=== PATIENT | male | born 1995 | race African-American/Black ===

== ENCOUNTER 2016-10-23 20:01 | Emergency (ER) | payer SELFPAY ==
[~2016-10-23] VITALS: Ht 185.4 cm; Wt 87.5 kg
[2016-10-23] MEDS ORDERED: Bacitracin Oint UD TOPIC ONE (20:30)
[2016-10-23] MEDS ORDERED: Lidocaine 1% MPF 10mg/ml 5ml IM ONE (20:30)
[2016-10-23 20:39] VITALS: BP 115/64
[2016-10-23] MEDS ORDERED: CEPHALEXIN500 MG ORAL (21:06)
[2016-10-23 21:18] VITALS: BP 115/64
--- NOTE | 2016-10-23 21:52 | Emergency Room Report ---
History of Present Illness General Chief Complaint: Laceration Source: Patient Present Illness HPI The patient is a 20-year-old male presenting for a right hand laceration. The patient states that he was in the restroom and fell to the ground where broken glass lay. The patient states that his head struck the glass and he noticed bleeding. The patient denies any pain to the hand and denies any numbness or tingling. The patient states that his last tetanus shot was 2 years prior. Allergies: Coded Allergies: No Known Allergies (Unverified , 10/23/16) Patient History Past Medical History: see triage record Pertinent Family History: none Reviewed Nursing Documentation: PMH: Agreed, PSxH: Agreed Nursing Documentation-PMH Past Medical History: No Stated History Review of Systems All Other Systems: negative except mentioned in HPI Physical Exam Vital Signs Date Time Temp Pulse Resp B/P Pulse Ox O2 Delivery O2 Flow Rate FiO2 10/23/16 20:15 98.4 69 18 115/64 99 Room Air Sp02 EP Interpretation: reviewed, normal General Appearance: no apparent distress, alert, GCS 15, non-toxic Head: normocephalic, atraumatic Eyes: bilateral eye PERRL, bilateral eye normal inspection ENT: hearing grossly normal, normal pharynx, no angioedema, normal voice Neck: full range of motion, supple/symm/no masses Respiratory: chest non-tender, lungs clear, normal breath sounds, speaking full sentences Cardiovascular #1: regular rate, rhythm, no edema Cardiovascular #2: 2+ carotid (R), 2+ carotid (L), 2+ radial (R), 2+ radial (L) , 2+ dorsalis pedis (R), 2+ dorsalis pedis (L) Gastrointestinal: normal bowel sounds, non tender, soft, non-distended, no guarding, no rebound Rectal: deferred Genitourinary: normal inspection, no CVA tenderness Musculoskeletal: back normal, gait/station normal, normal range of motion, non- tender Neurologic: alert, oriented x3, responsive, motor strength/tone normal, sensory intact, speech normal Psychiatric: judgement/insight normal, memory normal, mood/affect normal, no suicidal/homicidal ideation Reflexes: 3+ bicep (R), 3+ bicep (L), 3+ tricep (R), 3+ tricep (L), 3+ knee (R) , 3+ knee (L) Skin: normal color, no rash, warm/dry, well hydrated, laceration - R hand dorsum: 2cm laceration of 4th finger distal to MCP and 1cm laceration of 2nd MCP Lymphatic: no adenopathy Procedures Laceration/Wound Repair Laceration/Wound Repair : Consent: Verbal Wound Location: upper extremity Wound's Depth, Shape: superficial Wound Length (cm): 3 - total length of 2 lacerations Wound Explored: clean Irrigated w/ Saline (ccs): 200 Betadine Prep?: Yes Anesthesia: 1% Lidocaine Volume Anesthetic (ccs): 4 Wound Debrided: minimal Wound Repaired With: sutures Suture Size/Type: 5:0, nylon Number of Sutures: 5 Layer Closure?: No Sterile Dressing Applied?: Yes Splint Applied?: No Sling Applied?: No Patient Tolerated: Well Complications: None Medical Decision Making PA Attestation Dr. Vallejo is my supervising physician. Patient management was discussed with my supervising physician Diagnostic Impression: Primary Impression: Laceration ER Course The patient is a 20-year-old male presenting for a right hand laceration. Ddx considered include but not limited to fracture, tendon/ligament injury, avulsion, nerve damage PE: Vitals WNL. NAD. R hand dorsum: 2cm laceration of 4th finger distal to MCP and 1cm laceration of 2nd MCP. No active bleeding. Full active range of motion. Sensation intact to light touch. No obvious deformity The wound was irrigated with normal saline and cleaned with betadine. A 27g needle was used to administer 4mL of lidocaine w.o epi for local anaesthesia. 5 total sutures were placed with 5-0 Nylon. The wound was well approximated and the patient tolerated the procedure well. The wound was then cleaned and bacitracin was applied. The patient will be discharged home with a prescription for Keflex and will followup with primary care physician or return to emergency Department for suture removal. ER precautions are given Last Vital Signs Date Time Temp Pulse Resp B/P Pulse Ox O2 Delivery O2 Flow Rate FiO2 10/23/16 21:18 98.4 69 18 115/64 99 Room Air Status: improved Disposition: HOME, SELF-CARE Condition: Improved Scripts Cephalexin* (KEFLEX*) 500 Mg Capsule 500 MG ORAL EVERY 12 HOURS, #14 CAP 0 Refills Prov: TERZIROSEANN TAMAYO 10/23/16 Referrals: NOT CHOSEN [facility]/,REFERRING (PCP) Patient Instructions: Laceration Care, Adult Additional Instructions: I discussed my findings with the patient. All questions and concerns have been answered. Treatment and medication compliance have been addressed. I advised the patient that they need to follow up with PMD in 6-7 days for wound check and suture removal. If you are unable to see PMD, return to the ED in 6-7 days. Return to ED if pain remains or worsens, you notice discharge from the wound, the wound continues to bleed, the suture/s fall out, you notice a fever or chills, or for any reason. Patient is advised to keep the wound clean and apply an antibacterial ointment. Patient verbalized understanding of discharge instructions. ROSEANN KU Oct 23, 2016 21:52
== END 2016-10-23 21:19 | disposition home or self-care (01) ==
LOC: EMR 20:36
DX: S61.210A Laceration without foreign body of right index finger without damage to nail, initial encounter (principal); S61.214A Laceration without foreign body of right ring finger without damage to nail, initial encounter; S61.218A Laceration without foreign body of other finger without damage to nail, initial encounter; X58.XXXA Exposure to other specified factors, initial encounter; Y93.9 Activity, unspecified; Y92.9 Unspecified place or not applicable; Y99.9 Unspecified external cause status

== ENCOUNTER 2016-11-25 11:34 | Emergency (ER) | payer SELFPAY ==
[~2016-11-25] VITALS: Ht 182.9 cm; Wt 87.5 kg
[~2016-11-25 11:34] MED LIST: CEPHALEXIN500 MG ORAL
[2016-11-25 11:41] VITALS: BP 135/70
[2016-11-25] MEDS ORDERED: CLOTRIMAZOLE15 GM TOPIC (11:59)
[2016-11-25] MEDS ORDERED: IBUPROFEN600 MG ORAL (11:59)
[2016-11-25 12:26] VITALS: BP 123/70
--- NOTE | 2016-11-26 06:55 | Emergency Room Report ---
History of Present Illness General Chief Complaint: General Complaint Source: Patient Present Illness HPI 20-year-old male presents to ED for evaluation. Patient states that he has blisters on the bottom of his feet. Patient is homeless and presents with multiple suitcases. Patient states he's had a blisters for many days now. Believes there is a "infection". Patient states he would like a wheelchair to go home. Patient states the pain is throbbing, 7/10 localized to bottom of the feet bilaterally. Nonradiating. Worse with walking. No other agreed relieving factors. Notes pain but is able to bear weight. Denies any other associated symptoms Allergies: Coded Allergies: No Known Allergies (Unverified , 10/23/16) Patient History Past Medical History: none Past Surgical History: none Pertinent Family History: none Social History: Denies: alcohol use, drug use, smoking Immunizations: UTD Reviewed Nursing Documentation: PMH: Agreed, PSxH: Agreed Nursing Documentation-PMH Past Medical History: No Stated History Review of Systems All Other Systems: negative except mentioned in HPI Physical Exam Vital Signs Date Time Temp Pulse Resp B/P Pulse Ox O2 Delivery O2 Flow Rate FiO2 11/25/16 11:41 98.1 78 16 135/70 100 Room Air Sp02 EP Interpretation: reviewed, normal General Appearance: no apparent distress, alert, GCS 15, non-toxic Head: normocephalic Eyes: bilateral eye PERRL, bilateral eye normal inspection ENT: normal ENT inspection Neck: normal inspection Respiratory: normal inspection Cardiovascular #1: normal inspection Gastrointestinal: normal inspection Rectal: deferred Genitourinary: no CVA tenderness Musculoskeletal: back normal, gait/station normal, normal range of motion, non- tender Neurologic: alert, oriented x3, responsive, motor strength/tone normal, sensory intact, speech normal Psychiatric: normal inspection Skin: other - blisters to bottom of both feet. emacerated skin between toes bilaterally Lymphatic: normal inspection Medical Decision Making Diagnostic Impression: Primary Impression: Blister of foot Qualified Codes: S90.829A - Blister (nonthermal), unspecified foot, initial encounter ER Course Hospital Course 20-year-old male presents to ED with blisters to bilateral feet Differential diagnoses include: Cellulitis, dermatitis, insect bite, abscess Clinical course Patient placed on stretcher. After initial history, physical exam reveals a young male in no acute distress. On exam there is evidence of blisters to bottom of both feet. No evidence of cellulitis. There is some macerated skin between the toes bilaterally. Given patient's current hygienic state likely has fungal infection. Will give patient new socks, prescription for antifungal cream. Patient will not receive a wheelchair as we are not able to accommodate such request and the patient is ambulatory. Diagnosis - blister of foot stable and discharged to home with prescription for Lotrimin, motrin Instructed to followup with PMD. Instructed return to ED if symptoms recur or worsen Last Vital Signs Date Time Temp Pulse Resp B/P Pulse Ox O2 Delivery O2 Flow Rate FiO2 11/25/16 12:26 93 14 123/70 100 Room Air 11/25/16 11:41 98.1 Status: improved Disposition: HOME, SELF-CARE Condition: Stable Scripts Clotrimazole* (LOTRIMIN*) 15 Gm Cream..g. 1 APPLIC TOPIC TWICE A DAY, #15 GM Prov: MAXIMILIAN CHRISTIANSON M.D. 11/25/16 Ibuprofen* (MOTRIN*) 600 Mg Tablet 600 MG ORAL Q8H Y for For Pain, #30 TAB 0 Refills Prov: MAXIMILIAN CHRISTIANSON M.D. 11/25/16 Referrals: NOT CHOSEN [facility]/,REFERRING (PCP) Patient Instructions: MAXIMILIAN Jones M.D. Nov 26, 2016 06:55
== END 2016-11-26 00:26 | disposition home or self-care (01) ==
LOC: EMR 11:50
DX: S90.822A Blister (nonthermal), left foot, initial encounter (principal); S90.821A Blister (nonthermal), right foot, initial encounter; Z59.0 Homelessness
CPT/HCPCS: 99284

== ENCOUNTER 2017-01-02 03:03 | Emergency (ER) | payer SELFPAY ==
[~2017-01-02] VITALS: Ht 185.4 cm; Wt 81.6 kg
[~2017-01-02 03:03] MED LIST changes: +CLOTRIMAZOLE15 GM TOPIC; +IBUPROFEN600 MG ORAL
[2017-01-02 03:16] VITALS: BP 130/77
[2017-01-02] MEDS ORDERED: NKM (03:18)
[2017-01-02] MEDS ORDERED: TYLENOL EXTRA500 MG ORAL (03:38)
[2017-01-02 04:16] VITALS: BP 133/79
[2017-01-02 04:30] VITALS: BP 133/79
--- NOTE | 2017-01-03 00:47 | Emergency Room Report ---
History of Present Illness General Chief Complaint: General Complaint Source: Patient Present Illness HPI 21-year-old male presents to ED for evaluation. Patient states he is here for a "sponge bath" and because his throat hurts. patient states he has a fever- afebrile in triage. Denies cough. Denies earache. Patient is homeless. Denies chest pain shortness of breath. No other aggravating relieving factors. Denies any other associated Allergies: Coded Allergies: No Known Allergies (Unverified , 01/02/17) Patient History Past Medical History: none Past Surgical History: none Pertinent Family History: none Social History: Denies: alcohol use, drug use, smoking Immunizations: UTD Reviewed Nursing Documentation: PMH: Agreed, PSxH: Agreed Nursing Documentation-PMH Past Medical History: No Stated History Review of Systems All Other Systems: negative except mentioned in HPI Physical Exam Vital Signs Date Time Temp Pulse Resp B/P Pulse Ox O2 Delivery O2 Flow Rate FiO2 01/02/17 03:15 98.1 79 16 130/77 99 Room Air Sp02 EP Interpretation: reviewed, normal General Appearance: no apparent distress, alert, GCS 15, non-toxic Head: normocephalic, atraumatic Eyes: bilateral eye PERRL, bilateral eye normal inspection ENT: hearing grossly normal, normal pharynx, no angioedema, normal voice Neck: full range of motion, supple/symm/no masses Respiratory: chest non-tender, lungs clear, normal breath sounds, speaking full sentences Cardiovascular #1: regular rate, rhythm, no edema Cardiovascular #2: 2+ carotid (R), 2+ carotid (L), 2+ radial (R), 2+ radial (L) , 2+ dorsalis pedis (R), 2+ dorsalis pedis (L) Gastrointestinal: normal bowel sounds, non tender, soft, non-distended, no guarding, no rebound Rectal: deferred Genitourinary: normal inspection, no CVA tenderness Musculoskeletal: back normal, gait/station normal, normal range of motion, non- tender Neurologic: alert, oriented x3, responsive, motor strength/tone normal, sensory intact, speech normal Psychiatric: judgement/insight normal, memory normal, mood/affect normal, no suicidal/homicidal ideation Reflexes: 3+ bicep (R), 3+ bicep (L), 3+ tricep (R), 3+ tricep (L), 3+ knee (R) , 3+ knee (L) Skin: normal color, no rash, warm/dry, well hydrated Lymphatic: no adenopathy Medical Decision Making Diagnostic Impression: Primary Impression: Sore throat (viral) ER Course Hospital Course 21-year-old male presents ED complaining of throat pain. Afebrile Differential diagnoses include: URI, pharyngitis, otitis media Clinical course Patient placed on stretcher. After initial history, physical exam reveals a young male in no acute distress. Bilateral TM unremarkable. no pharyngeal erythema. no exudates. No lymphadenopathy. given tylenol Diagnosis - sore throat (viral) Stable and discharged home with prescriptions for Tylenol. Instructed to followup with PMD. return to ED if symptoms recur or worsen Last Vital Signs Date Time Temp Pulse Resp B/P Pulse Ox O2 Delivery O2 Flow Rate FiO2 01/02/17 04:30 98.0 77 15 133/79 99 Room Air Status: improved Disposition: HOME, SELF-CARE Condition: Stable Scripts Acetaminophen* (TYLENOL EXTRA STRENGTH*) 500 Mg Tablet 500 MG ORAL Q8H Y for Prn Headache/Temp > 101, #30 TAB 0 Refills Prov: MAXIMILIAN CHRISTIANSON M.D. 01/02/17 Referrals: NOT CHOSEN [facility]/,REFERRING (PCP) Patient Instructions: Sore Throat, [id number] MAXIMILIAN CHRISTIANSON M.D. Jan 03, 2017 00:47
[2017-01-03] MEDS ORDERED: PERMETHRIN60 GM TOPIC (20:20)
[2017-01-03] MEDS ORDERED: ATARAX25 MG ORAL (20:20)
== END 2017-01-02 04:35 | disposition home or self-care (01) ==
LOC: EMR 03:29
DX: J02.8 Acute pharyngitis due to other specified organisms (principal); Z59.0 Homelessness
CPT/HCPCS: 99283

== ENCOUNTER 2017-01-03 18:43 | Emergency (ER) | payer SELFPAY ==
[~2017-01-03] VITALS: Ht 182.9 cm; Wt 81.6 kg
[~2017-01-03 18:43] MED LIST changes: +NKM; +TYLENOL EXTRA500 MG ORAL
--- NOTE | 2017-01-03 20:19 | Emergency Room Report ---
History of Present Illness General Chief Complaint: Skin Rash/Abscess Source: Patient Present Illness HPI 21-year-old male presents emergency department complaining of itchy rash in the pubic hair area x2 days. Patient denies erythema patient denies testicular pain patient denies lesions patient denies penile discharge, hematuria or dysuria. Patient denies nausea vomiting fever chills. Patient denies swollen tender lymph nodes. Patient denies abdominal pain. Patient reports seeing tiny white insects.Denies CP, Palpitations, LOC, AMS, dizziness, Changes in Vision, Sensation, paresthesias, or a sudden severe headache. Allergies: Coded Allergies: No Known Allergies (Unverified , 01/02/17) Patient History Past Medical History: see triage record Past Surgical History: none Pertinent Family History: none Immunizations: UTD Reviewed Nursing Documentation: PMH: Agreed, PSxH: Agreed Nursing Documentation-PMH Past Medical History: No History, Except For History Of Psychiatric Problem: Yes - BIPOLAR Review of Systems All Other Systems: negative except mentioned in HPI Physical Exam Vital Signs Date Time Temp Pulse Resp B/P Pulse Ox O2 Delivery O2 Flow Rate FiO2 01/03/17 18:50 98.1 63 20 127/82 100 Room Air Sp02 EP Interpretation: reviewed, normal General Appearance: no apparent distress, alert, GCS 15, non-toxic Head: normocephalic, atraumatic Eyes: bilateral eye PERRL, bilateral eye normal inspection ENT: hearing grossly normal, normal pharynx, no angioedema, normal voice Neck: full range of motion, supple/symm/no masses Respiratory: chest non-tender, lungs clear, normal breath sounds, speaking full sentences Cardiovascular #1: regular rate, rhythm, no edema Cardiovascular #2: 0 carotid (R), 0 carotid (L), 0 radial (R), 0 radial (L), 0 femoral (R), 0 femoral (L), 0 dorsalis pedis (R), 0 dorsalis pedis (L) Gastrointestinal: normal bowel sounds, non tender, soft, no guarding, no rebound Rectal: deferred Genitourinary: normal inspection, no CVA tenderness Musculoskeletal: back normal, gait/station normal, normal range of motion, non- tender, no calf tenderness Neurologic: alert, oriented x3, responsive, motor strength/tone normal, sensory intact, speech normal Psychiatric: judgement/insight normal, memory normal, mood/affect normal, no suicidal/homicidal ideation Skin: normal color, warm/dry, well hydrated, rash - evidence to suggest pediculosis infestation white nits adherant to the pubic hair, no erythema of the skin, no LAD, no tenderness. Lymphatic: no adenopathy Medical Decision Making PA Attestation Dr. Vallejo is my supervising Physician whom patient management has been discussed with. Diagnostic Impression: Primary Impression: Pubic lice ER Course Pt. presents to the ED c/o rash on pubic hair area x 2 days. Ddx considered but are not limited to cellulitis, scabies, shingles, varicella, dermatitis, urticaria, eczema, tinea Vital signs: are WNL, pt. is afebrile H&PE are most consistent with pubic lice ORDERS: none required at this time, the diagnosis is clinical ED INTERVENTIONS: None required at this time. DISCHARGE: At this time pt. is stable for d/c to home. Will provide printed patient care instructions, and any necessary prescriptions. Care plan and follow up instructions have been discussed with the patient prior to discharge. Last Vital Signs Date Time Temp Pulse Resp B/P Pulse Ox O2 Delivery O2 Flow Rate FiO2 01/03/17 18:50 98.1 63 20 127/82 100 Room Air Disposition: HOME, SELF-CARE Condition: Stable Scripts Hydroxyzine HCl (Hydroxyzine HCl) 25 Mg Tablet 25 MG ORAL FOUR TIMES A DAY for 7 Days, #30 TAB Prov: Madeleine Alonzo 01/03/17 Permethrin* (ELIMITE*) 60 Gm Cream..g. 1 APPLIC TOPIC ONCE, #60 GM 0 Refills Apply cream from head to toe; leave on for 8-14 hours before washing off with water; may reapply in 1 week if live mites appear. Prov: Madeleine Alonzo 01/03/17 Referrals: NOT CHOSEN [facility]/MD,REFERRING (PCP) Patient Instructions: Lice, Adult, Rash Additional Instructions: Take medications as directed. Follow up with PCP in 3-5 days Return sooner to ED if new symptoms occur, or current symptoms become worse. Do not drink alcohol, drive, or operate heavy machinery while taking hydroxyzine as this may cause drowsiness. - Please note that this Emergency Department Report was dictated using [employer] welding machine operator technology software, occasionally this can lead to erroneous entry secondary to interpretation by the dictation equipment. Madeleine Alonzo Jan 03, 2017 20:18
[2017-01-03 20:20] VITALS: BP 132/84
[2017-01-03] MEDS ORDERED: PERMETHRIN60 GM TOPIC (20:20)
[2017-01-03] MEDS ORDERED: ATARAX25 MG ORAL (20:20)
[2017-01-03 21:04] VITALS: BP 132/84
== END 2017-01-03 21:05 | disposition home or self-care (01) ==
LOC: EMR 20:00
DX: B85.3 Phthiriasis (principal); F31.9 Bipolar disorder, unspecified
CPT/HCPCS: 99284

== ENCOUNTER 2020-07-23 10:10 | Emergency (ER) | payer SELFPAY ==
[~2020-07-23] VITALS: Ht 188 cm; Wt 102.1 kg
[~2020-07-23 10:10] MED LIST changes: +ATARAX25 MG ORAL; +PERMETHRIN60 GM TOPIC
--- NOTE | 2020-07-23 10:51 | Emergency Room Report ---
History of Present Illness General Chief Complaint: Lower Extremity Injury Source: Patient Present Illness HPI Patient is a 24-year-old male presents for increased right lower extremity discomfort. Reports having recent injury to the top of his right foot. Denies any fever. Denies any pain to the bottom of his foot. Has been able to ambulate.Patient was noted to have some injury after something was dropped on his foot. Denies any increased swelling. Denies any prior history of diabetes or other medical conditions. 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 COVID-19 Screening: Negative COVID-19 COVID-19 Testing Source: unk Patient History Past Medical History: see triage record Reviewed Nursing Documentation: PMH: Agreed; PSxH: Agreed Nursing Documentation-PMH Past Medical History: No Stated History Review of Systems All Other Systems: negative except mentioned in HPI Physical Exam Vital Signs Date Time Temp Pulse Resp B/P (MAP) Pulse Ox O2 Delivery O2 Flow Rate FiO2 07/23/20 10:12 96.6 83 18 137/91 (106) 98 Room Air General Appearance: well appearing, no apparent distress, alert, GCS 15 Head: normocephalic, atraumatic ENT: hearing grossly normal, normal voice Neck: full range of motion, supple Respiratory: no respiratory distress, speaking full sentences Musculoskeletal: normal inspection, other - right foot superficial skin ulceration to dorsum of foot, no erythema Neurologic: oriented x3, normal gait Psychiatric: normal inspection, mood/affect normal Skin: no rash, other - superficial avulsion to skin of foot without erythema Medical Decision Making Diagnostic Impression: Primary Impression: Skin ulcer ER Course Presented for foot injury. Differential diagnosis include was not limited to ulcer, abrasion, cellulitis among others. Patient has a benign exam and does not appear to require any imaging or laboratory testing at this time. Patient does not appear to have any evidence of infection at this time. There appears to be superficial ulceration approximately 1 cm in diameter. Does not have any active bleeding at this time. Topical antibiotics were applied as well as local wound care. Patient be discharged home. The patient is advised to follow up with primary care doctor in 1-2 days. Patient is advised to return if any worsening condition or if any changes in status that are concerning. This report is dictated with [employer] electronic equipment trades worker software which may occasionally lead to discrepancies related to use of this software. Last Vital Signs Date Time Temp Pulse Resp B/P (MAP) Pulse Ox O2 Delivery O2 Flow Rate FiO2 07/23/20 10:12 96.6 83 18 137/91 (106) 98 Room Air Status: improved Disposition: HOME, SELF-CARE Condition: Stable Referrals: NOT CHOSEN [facility]/,REFERRING (PCP) Gregor Vallejo MD Jul 23, 2020 10:51
[2020-07-23] MEDS ORDERED: Bacitracin Oint UD TOPIC ONE (11:00)
[2020-07-23] MEDS ORDERED: Acetaminophen 500mg (ES) tab ORAL ONE (11:00)
[2020-07-23] MEDS ORDERED: BACITRACIN ZIN1 EACH TOPIC (11:09)
[2020-07-23 11:25] VITALS: BP 132/88
== END 2020-07-23 11:25 | disposition home or self-care (01) ==
LOC: EMR 10:38
DX: L98.499 Non-pressure chronic ulcer of skin of other sites with unspecified severity (principal); S91.301A Unspecified open wound, right foot, initial encounter; X58.XXXA Exposure to other specified factors, initial encounter; Y92.9 Unspecified place or not applicable
CPT/HCPCS: 99282

== ENCOUNTER 2020-10-03 18:18 | Emergency (ER) | payer MEDICAID ==
[~2020-10-03] VITALS: Ht 188 cm; Wt 99.8 kg
[~2020-10-03 18:18] MED LIST changes: +BACITRACIN ZIN1 EACH TOPIC
[2020-10-03] MEDS ORDERED: Tetanus/Diptheria/Pertussis IM ONE (19:00)
--- NOTE | 2020-10-03 19:38 | Emergency Room Report ---
History of Present Illness General Chief Complaint: Lower Extremity Injury Source: Patient Present Illness HPI 24-year-old male presents to the emergency department complaining of 6 out of 10 severity pain to the feet bilaterally that have been progressive for some time "weeks ". Patient reports that he is homeless and he walks for hours each day. 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 Patient reports he started developing blisters on the bottom of his feet. He is reporting some swelling to the feet bilaterally. He denies swelling of the ankles, calf swelling or calf tenderness. Patient does report tenderness to the plantar aspects of his feet. He is not sure when his last tetanus vaccination was. Patient reports only significant past medical history of psychiatric issues. Patient states he is living out on the streets and that is difficult for him to find places to sleep. He denies fevers, chills, bleeding, chest pain, shortness of breath, cough or headaches. No other symptoms at this time. 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: No COVID-19 Testing Source: 1 week Patient History Past Medical History: see triage record Past Surgical History: none Pertinent Family History: none Reviewed Nursing Documentation: PMH: Agreed; PSxH: Agreed Nursing Documentation-PMH Past Medical History: No History, Except For History Of Psychiatric Problem: Yes Review of Systems All Other Systems: negative except mentioned in HPI Physical Exam Vital Signs Date Time Temp Pulse Resp B/P (MAP) Pulse Ox O2 Delivery O2 Flow Rate FiO2 10/03/20 18:20 98.8 90 20 150/76 (100) 98 Room Air Sp02 EP Interpretation: reviewed, normal General Appearance: no apparent distress, alert, GCS 15, non-toxic, other - well kept for the most part/well dressed other than debilitated shoes. Head: normocephalic, atraumatic Eyes: bilateral eye normal inspection, bilateral eye PERRL ENT: hearing grossly normal, normal voice Neck: full range of motion Respiratory: speaking full sentences Cardiovascular #1: regular rate, rhythm, normal capillary refill, edema - 1+ nonpitting pedal edema Cardiovascular #2: 2+ dorsalis pedis (R), 2+ dorsalis pedis (L) Musculoskeletal: normal range of motion, no calf tenderness, gait/station normal, tender - plantar aspect of the feet bilaterally. Neurologic: alert, motor strength/tone normal, oriented x3, sensory intact, responsive, speech normal, normal gait, grossly normal Psychiatric: judgement/insight normal, mood/affect normal, no suicidal/homicidal ideation Skin: other - pressure sores and blisters due to friction and excessive moisture to the feet bilaterally. Mild erythema. Normal cap refill. Diffuse swelling of the feet bilaterally. No obvious puncture wounds or ulcers. 2+ pedal pulses bilaterally Medical Decision Making PA Attestation Dr. Vallejo is my supervising Physician whom patient management has been discussed with. Homeless Attestation I, The treating provider, Maedleine ALEGRIA, has assessed and agrees that patient is medically stable for discharge to an outpatient disposition. Diagnostic Impression: Primary Impression: Blister of foot Qualified Codes: S90.829A - Blister (nonthermal), unspecified foot, initial encounter Additional Impression: Pressure sore Qualified Codes: L89.91 - Pressure ulcer of unspecified site, stage 1 ER Course 24-year-old male presents to the emergency department complaining of 6 out of 10 severity pain to the feet bilaterally that have been progressive for some time "weeks ". Patient reports that he is homeless and he walks for hours each day. 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 Patient reports he started developing blisters on the bottom of his feet. He is reporting some swelling to the feet bilaterally. He denies swelling of the ankles, calf swelling or calf tenderness. Patient does report tenderness to the plantar aspects of his feet. He is not sure when his last tetanus vaccination was. Patient reports only significant past medical history of psychiatric issues. Patient states he is living out on the streets and that is difficult for him to find places to sleep. He denies fevers, chills, bleeding, chest pain, shortness of breath, cough or headaches. No other symptoms at this time. Ddx considered but are not limited to cellulitis, Necrotizing fasciitis, allergic reaction, burn, dermatitis, gout, trench foot, dermatophyte infection, blisters, pressure sores ingrown toe nail, Vital signs: are WNL, pt. is afebrile H&PE are most consistent with pressure sores and blisters due to friction and excessive moisture to the feet bilaterally. Mild erythema. Normal cap refill. Diffuse swelling of the feet bilaterally. No obvious puncture wounds or ulcers. 2+ pedal pulses bilaterally ORDERS: none required at this time, the diagnosis is clinical ED INTERVENTIONS: -Tdap IM DISCHARGE: At this time pt. is stable for d/c to home. Will provide printed p atient care instructions, and any necessary prescriptions. Care plan and follow up instructions have been discussed with the patient prior to discharge. Last Vital Signs Date Time Temp Pulse Resp B/P (MAP) Pulse Ox O2 Delivery O2 Flow Rate FiO2 10/03/20 18:20 98.8 90 20 150/76 (100) 98 Room Air Disposition: HOME, SELF-CARE Condition: Stable Scripts Cephalexin* (KEFLEX*) 500 Mg Capsule 500 MG ORAL EVERY 12 HOURS for 7 Days, #14 CAP 0 Refills Prov: Madeleine Alonzo 10/03/20 Ibuprofen* (MOTRIN*) 400 Mg Tablet 400 MG ORAL THREE TIMES A DAY, #20 TAB 0 Refills Prov: Madeleine Alonzo 10/03/20 Clotrimazole* (LOTRIMIN*) 15 Gm Cream..g. 1 APPLIC TOPIC TWICE A DAY, #15 GM Prov: Madeleine Alonzo 10/03/20 Referrals: [facility],REFERRING (PCP) Jose G Dsouza [facility]. [facility] Patient Instructions: Blisters Additional Instructions: Take medications as directed. ____Review packet that has several pages of homeless services community plans including shelters and free clinic information. Limit excessive walking and keep your feet elevated and dry. this will reduce swelling and progression of your symptoms. Follow up with a Primary Care Provider in 3-5 days, even if your symptoms have resolved. --Please review list of primary care clinics, if you do not already have a primary care provider Return sooner to ED if new symptoms occur, or current symptoms become worse. - Please note that this Emergency Department Report was dictated using SmartVaultmodel and mold maker plaster technology software, occasionally this can lead to erroneous entry secondary to interpretation by the dictation equipment. Madeleine Alonzo Oct 03, 2020 19:38
[2020-10-03] MEDS ORDERED: IBUPROFEN400 MG ORAL (19:49)
[2020-10-03] MEDS ORDERED: CEPHALEXIN500 MG ORAL (19:49)
[2020-10-03] MEDS ORDERED: CLOTRIMAZOLE15 GM TOPIC (19:49)
[2020-10-03 20:00] VITALS: BP 143/71
== END 2020-10-03 20:00 | disposition home or self-care (01) ==
LOC: EMR 19:16
DX: S90.822A Blister (nonthermal), left foot, initial encounter (principal); S90.821A Blister (nonthermal), right foot, initial encounter; X58.XXXA Exposure to other specified factors, initial encounter; L89.892 Pressure ulcer of other site, stage 2; Z23 Encounter for immunization
CPT/HCPCS: 90471; 90715; Z7502; 99283

== ENCOUNTER 2020-10-08 20:30 | Emergency (ER) | payer MEDICAID ==
[~2020-10-08] VITALS: Ht 188 cm; Wt 90.7 kg
[~2020-10-08 20:30] MED LIST changes: +IBUPROFEN400 MG ORAL
[2020-10-08] MEDS ORDERED: IBUPROFEN600 M1 ORAL (21:06)
--- NOTE | 2020-10-08 21:16 | Emergency Room Report ---
History of Present Illness General Chief Complaint: Lower Extremity Injury Source: Patient Present Illness HPI Disclaimer: Please note that this report is being documented using [employer] technology. This can lead to erroneous entry secondary to incorrect interpretation by the dictating instrument. HPI: 24-year-old male no reported past medical history presents for bilateral foot pain. He states he has had bilateral foot pain for a few months. He states he does a lot of walking. He has been seen here multiple times for for the same. No fevers nausea or vomiting. He reports about 8 out of 10 pain that is worse with palpation and nonradiating. Recently seen and given p.o. antibiotics. 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 Patient History Reviewed Nursing Documentation: PMH: Agreed; PSxH: Agreed Nursing Documentation-PMH Past Medical History: No Stated History Review of Systems All Other Systems: negative except mentioned in HPI Physical Exam Vital Signs Date Time Temp Pulse Resp B/P (MAP) Pulse Ox O2 Delivery O2 Flow Rate FiO2 10/08/20 20:48 98.4 80 16 132/68 (89) 97 Room Air Sp02 EP Interpretation: reviewed, normal General Appearance: well appearing, no apparent distress Head: normocephalic, atraumatic Eyes: bilateral eye PERRL, bilateral eye EOMI ENT: hearing grossly normal, moist mucus membranes Neck: full range of motion, supple Respiratory: lungs clear, normal breath sounds, no rhonchi, no respiratory distress, no retraction, no wheezing Cardiovascular #1: normal peripheral pulses, regular rate, rhythm, no murmur Gastrointestinal: non tender, soft, non-distended, no guarding Musculoskeletal: other - Bilateral feet appear normal, no erythema, no active bleeding, no deformities, patient ambulatory without assistance, 2+ pulses bilaterally. No obvious edema. Neurologic: alert, oriented x3, no focal defects Skin: normal color, warm/dry Medical Decision Making Diagnostic Impression: Primary Impression: Bilateral foot pain ER Course Patient presents with bilateral foot pain. I suspect pain secondary to overuse. He has been doing a lot of walking. No fever. Vital signs stable. Exam was benign. Patient was in no acute distress. He was given Tylenol in the ER. Will be discharged with analgesics and clean socks. At this time I have low suspicion for emergent medical process. Last Vital Signs Date Time Temp Pulse Resp B/P (MAP) Pulse Ox O2 Delivery O2 Flow Rate FiO2 10/08/20 20:48 98.4 80 16 132/68 (89) 97 Room Air Disposition: HOME, SELF-CARE Condition: Stable Scripts Ibuprofen* (MOTRIN*) 600 Mg Tablet 600 MG ORAL Q6H PRN for For Pain, #30 TAB 0 Refills Prov: Ko Potts M.D. 10/08/20 Patient Instructions: Foot Sprain Additional Instructions: Patient is instructed to follow-up with her primary care doctor, primary care clinic or [facility] in 1 to 2 days. Patient instructed to return for any worsening symptoms or concerns. Ko Potts M.D. Oct 08, 2020 21:16
[2020-10-08 21:25] VITALS: BP 132/68
== END 2020-10-08 21:30 | disposition home or self-care (01) ==
LOC: EMR 20:51
DX: M79.672 Pain in left foot (principal); M79.671 Pain in right foot
CPT/HCPCS: 99282